=== PATIENT | male | born 1995 | race Two or more races ===

== ENCOUNTER 2017-07-05 17:37 | Emergency (ER) | payer OTHER ==
[~2017-07-05] VITALS: Ht 172.7 cm; Wt 73.0 kg
[2017-07-05 19:33] VITALS: BP 169/83
== END 2017-07-05 19:34 | disposition home or self-care (01) ==
LOC: EME 17:37
DX: S50.862A Insect bite (nonvenomous) of left forearm, initial encounter (principal); S70.362A Insect bite (nonvenomous), left thigh, initial encounter; W57.XXXA Bitten or stung by nonvenomous insect and other nonvenomous arthropods, initial encounter; Z59.0 Homelessness; F17.200 Nicotine dependence, unspecified, uncomplicated; F90.9 Attention-deficit hyperactivity disorder, unspecified type
CPT/HCPCS: 99281; 99283; Q0177

== ENCOUNTER 2017-09-14 22:19 | Emergency (ER) | payer OTHER ==
[~2017-09-14] VITALS: Ht 172.7 cm; Wt 75.9 kg
[2017-09-15 03:09] VITALS: BP 135/85
== END 2017-09-15 03:10 | disposition home or self-care (01) ==
LOC: EME 22:19
DX: S02.2XXA Fracture of nasal bones, initial encounter for closed fracture (principal); S60.222A Contusion of left hand, initial encounter; S60.221A Contusion of right hand, initial encounter; F10.129 Alcohol abuse with intoxication, unspecified; Y04.0XXA Assault by unarmed brawl or fight, initial encounter; Z59.0 Homelessness
CPT/HCPCS: 70450; 70486; 72125; 73130

== ENCOUNTER 2017-11-08 19:11 | Emergency (ER) | payer OTHER ==
[~2017-11-08] VITALS: Ht 172.7 cm; Wt 74.4 kg
[2017-11-08 19:17] VITALS: BP 138/103
== END 2017-11-08 19:34 | disposition left against medical advice (07) ==
LOC: EME 19:11
DX: R51 Headache (principal); Y09 Assault by unspecified means; Z53.29 Procedure and treatment not carried out because of patient's decision for other reasons; F20.9 Schizophrenia, unspecified; F17.200 Nicotine dependence, unspecified, uncomplicated

== ENCOUNTER 2017-11-22 15:15 | Emergency (ER) | payer OTHER ==
[~2017-11-22] VITALS: Ht 172.7 cm; Wt 77.3 kg
[2017-11-22] MEDS ORDERED: JOCK ITCH15 GM TP (16:58)
[2017-11-22] MEDS ORDERED: ELIMITE 5% CREA60 GM TP (16:58)
[2017-11-22 17:11] VITALS: BP 133/89
== END 2017-11-22 17:11 | disposition home or self-care (01) ==
LOC: EME 15:15
DX: L29.0 Pruritus ani (principal); R21 Rash and other nonspecific skin eruption; F20.9 Schizophrenia, unspecified; F17.200 Nicotine dependence, unspecified, uncomplicated
CPT/HCPCS: 99281; 99284

== ENCOUNTER 2017-11-25 18:23 | Emergency (ER) | payer OTHER ==
[~2017-11-25] VITALS: Ht 172.7 cm; Wt 57.4 kg
[~2017-11-25 18:23] MED LIST: ELIMITE 5% CREA60 GM TP; JOCK ITCH15 GM TP
[2017-11-25 18:45] VITALS: BP 145/104
== END 2017-11-25 18:57 | disposition left against medical advice (07) ==
LOC: EME 18:23
DX: S09.90XA Unspecified injury of head, initial encounter (principal); Z53.21 Procedure and treatment not carried out due to patient leaving prior to being seen by health care provider
CPT/HCPCS: 99281; 99283